=== PATIENT | male | born 1960 | race Two or more races ===

== ENCOUNTER 2021-02-17 20:33 | Emergency (ER) | payer SELFPAY ==
[~2021-02-17] VITALS: Ht 180.3 cm; Wt 82.0 kg
[2021-02-17] MEDS ORDERED: ACETAMINOPHEN 325MG TABLET PO STA (20:57)
[2021-02-17] MEDS ORDERED: SODIUM CHLORIDE 0.9% 1,000 ML IV ONE (21:00)
[2021-02-17 22:32] LABS: BASOPHILS % 0.4 % (0.0-2.0); EOSINOPHILS % 1.1 % (0.0-5.0); HEMATOCRIT. 47.8 % (42.0-52.0); HEMOGLOBIN. 15.3 g/dL (14.0-18.0); LYMPHOCYTES % 10.1 % (20.0-50.0); MEAN CORPUSCULAR HEMOGLOBIN 29.3 pg (28.0-32.0); MEAN CORPUSCULAR VOLUME 91.9 fL (80.0-94.0); MEAN PLATELET VOLUME 8.4 fl (7.4-10.4); MONOCYTES % 5.3 % (2.0-8.0); NEUTROPHILS % 83.1 % (40.0-76.0); PLATELET 218 x1000/uL (130-400); RED CELL DISTRIBUTION WIDTH 13.4 % (11.6-14.6)
[2021-02-17 22:39] LABS: CHLORIDE 111 mEq/L (98-107)
[2021-02-17 22:44] LABS: ETHANOL BLOOD 15 mg/dL
[2021-02-18 01:22] LABS: CLARITY URINE CLEAR (CLEAR); COLOR URINE YELLOW (YELLOW); KETONES URINE NEGATIVE (NEGATIVE); LEUKOCYTE ESTERASE URINE NEGATIVE (NEGATIVE); NITRITE URINE NEGATIVE (NEGATIVE); OCCULT BLOOD URINE NEGATIVE (NEGATIVE); PROTEIN URINE NEGATIVE (NEGATIVE); SPECIFIC GRAVITY URINE 1.008 (1.005-1.030); UROBILINOGEN URINE 0.2 E.U./dL (0.2-1.0)
[2021-02-18 05:00] VITALS: BP 155/72
== END 2021-02-18 05:09 | disposition left against medical advice (07) ==
LOC: ER 20:33 → CANBEDREQ 02-18 06:33
DX: R55 Syncope and collapse (principal); E86.0 Dehydration
CPT/HCPCS: 36415; 71045; 80053; 80320; 81003; 83605; 83880; 84484; 85025; 93005; 96360; 99285; J7030; G0480